=== PATIENT | female | born 1960 | race Caucasian/White ===

== ENCOUNTER → 2016-10-17 | Day surgery (SDC) | payer OTHER ==
[~2016-10-17] VITALS: Ht 154.9 cm; Wt 77.0 kg
[~2016-10-17] MED LIST: 0.9% Sodium Chloride 1,000 ML IV PRN; AMLO5TAB2 PO; ATEN25TA PO; HYDR25TA4 PO; LOSA50TA37 PO; Sodium Chloride LOK Flush 10 mL Syringe IV PRN; fentaNYL-PF 50 mCg/mL 2 mL Inj IVPUSH PRN
[2016-10-17 11:27] VITALS: BP 157/90; PULSE 77; RESP 16; O2SAT 95
--- NOTE | 2016-10-17 13:11 | PCM.ENDCOL ---
Colonoscopy Date of Service: Oct 17, 2016 Physician Pipo Chapman MD Pre Procedure Diagnosis: Screening colonoscopy personal history of colon polyp family history of colon cancer Post Procedure Dx & Findings: Polyp hemorrhoids Procedure Colonoscopy PROCEDURE IN DETAIL: Prep adequate Withdrawal time After unremarkable rectal examination the Olympus video colonoscope was inserted patient's anal canal and was advanced to cecum. Landmarks were identified including the ileocecal valve and appendiceal orifice. Scope was withdrawn systematically. Visualized colonic mucosa showed healthy shiny mucosa with normal healthy-appearing vasculature. In the transverse colon there was a 1 mm polyp which was removed completely using cold forceps. In the descending colon there was about 2-3 mm flat polyp which was removed completely using cold snare. In the rectum retroflexion was done which showed hemorrhoids. Anal canal was inspected carefully on the way out and hemorrhoids noted. Impression Polyps 2 status post complete removal Personal history of colon polyp Family history of colon cancer Hemorrhoids Recommendation Repeat colonoscopy in 5 years Presedation Assessment Risks and Benefits Informed consent was obtained from the patient after all risks and benefits including but not limited to drug reaction, infection, pain, bleeding, perforation, as well as alternatives were discussed. Patient monitoring Continuous pulse oximetry, cardiac monitoring, blood pressure monitoring, IV access, and oxygen at 2L per nasal cannula. Periprocedural Fentanyl: Fentanyl 100mcg Incrementally Midazolam: Midazolam 6mg Incrementally Complications There were no periprocedural complications identified. Post Procedure Plan Post Procedure Recommendations 1. Restrict activities today. 2. Resume normal activities in the morning. 3. Resume medications. 4. Patient informed of normal post procedure side effects as bloating, drowsiness, blood streaking in the stool. 5. average risk CRCS. If colon polyps come back as: -Hyperplastic- can repeat colonoscopy in 10 years -Tubular adenoma- repeat colonoscopy in 5 years -Tubulovillous/villous adenoma- repeat colonoscopy in 3 years -If any dysplasia- return to clinic as soon as possible 6. Please don't hesitate to call me with any questions. Pipo Chapman MD Oct 17, 2016 13:11
[2016-10-17 13:12] VITALS: BP 121/77; PULSE 82; RESP 16; O2SAT 95
[2016-10-17 13:23] VITALS: BP 119/72; PULSE 74; RESP 16; O2SAT 95
[2016-10-17 13:32] VITALS: BP 135/83; PULSE 76; RESP 16; O2SAT 98
--- NOTE | 2016-10-20 16:08 | PATH ---
SURGICAL PATHOLOGY Attending Physician:Pipo Chapman M.D. CASE STATUS: Signed Out PATIENT NAME: МАРИНА CRUMP PID: [id number] : 1960 DATE COLLECTED:10/17/2016 00:00 SPECIMEN: 1: Colon, Polyp 2: Colon, Polyp CLINICAL HISTORY: 1). TRANSVERSE COLON POLYP 2). DESCENDING COLON POLYP FINAL DIAGNOSIS: 1. Transverse Colon, Polyp, Biopsy: Benign lymphoid aggregate. 2. Descending Colon Polyp, Biopsy: Tubular adenoma. ICD10: D12.4 GROSS DESCRIPTION: The specimen is received in two formalin filled containers labeled with the patient's name. 1). The specimen is labeled "transverse colon polyp" and consists of a 0.2 x 0.2 x 0.1 CM portion of tissue which is entirely submitted in cassette 1A. 2). The specimen is labeled "descending colon polyp" and consists of 2 portions of tissue which aggregate to 0.2 x 0.2 x 0.2 CM. The specimen is entirely submitted in cassette 2A. 10/18/2016DC ICD-9 CODES: CPT CODES: 1: 78584 2: 21884 Electronically Signed Out Padmini Yeboah MD [facility] [address], [place] [address] Technical component performed at [facility], [facility] [address], [address]
== END | disposition home or self-care (01) ==
LOC: END 01:22
PROVIDERS: ATTEND Internal Medicine
DX: Z12.11 Encounter for screening for malignant neoplasm of colon (principal); Z80.0 Family history of malignant neoplasm of digestive organs; D12.4 Benign neoplasm of descending colon; K63.5 Polyp of colon; K64.9 Unspecified hemorrhoids; I10 Essential (primary) hypertension; E03.9 Hypothyroidism, unspecified; M85.89 Other specified disorders of bone density and structure, multiple sites; F32.9 Major depressive disorder, single episode, unspecified; Z87.891 Personal history of nicotine dependence
CPT/HCPCS: 45380; 45385; 99153; G0500; J2250; J3010; J7030